=== PATIENT | female | born 1945 | race Caucasian/White ===

== ENCOUNTER 2016-12-16 19:47 | Emergency (ER) | payer MEDICARE, OTHER ==
[2016-12-16 19:57] VITALS: TEMP 98.3; O2SAT 98
[2016-12-16 19:59] VITALS: BMI 25.2
--- NOTE | 2016-12-16 21:04 | ED PDOC ---
Arrival/HPI - General Chief Complaint: Trauma Time Seen by Provider: 12/16/16 19:57 Historian: Patient - History of Present Illness Narrative History of Present Illness (Text): 12/16/16 20:15 Nica Christianson is a 71 year old female, whose past medical history includes hypertension, who presents to the ED s/p fall. Patient states she tripped and fell at home, injuring her left elbow. Patient now complaining of left elbow pain. Patient denies any loss of consciousness, headache, dizziness, neck pain, back pain, weakness/tingling/numbness in the extremity, or any other complaints. Time/Duration: Other (tonight) Symptom Onset: Gradual Symptom Course: Unchanged Activities at Onset: Light Context: Walking, Home, Tripped Past Medical History - Provider Review Nursing Documentation Reviewed: Yes - Cardiac Hx Cardiac Disorders: Yes Hx Hypertension: Yes - Pulmonary Hx Respiratory Disorders: No - Neurological Hx Neurological Disorder: No - HEENT Hx HEENT Disorder: No - Renal Hx Renal Disorder: No - Endocrine/Metabolic Hx Endocrine Disorders: Yes Hx Diabetes Mellitus Type 2: Yes - Hematological/Oncological Hx Blood Disorders: No - Integumentary Hx Dermatological Disorder: No - Musculoskeletal/Rheumatological Hx Musculoskeletal Disorders: Yes Hx Arthritis: Yes Hx Unsteady Gait: Yes - Gastrointestinal Hx Gastrointestinal Disorders: No - Genitourinary/Gynecological Hx Genitourinary Disorders: No - Psychiatric Hx Psychophysiologic Disorder: No Hx Substance Use: No - Surgical History Hx Orthopedic Surgery: Yes (hip) Family/Social History - Physician Review Nursing Documentation Reviewed: Yes Family/Social History: No Known Family HX Smoking Status: Never Smoked Hx Alcohol Use: No Hx Substance Use: No Allergies/Home Meds Allergies/Adverse Reactions: Allergies No Known Allergies Allergy (Verified 12/16/16 19:59) Home Medications: Home Meds Medication Instructions Recorded Confirmed Amlodipine Bes/Olmesartan Med 1 tab PO DAILY 12/16/16 12/16/16 [Christopher 5-20 mg Tablet] Clopidogrel [Plavix] 75 mg PO DAILY 12/16/16 12/16/16 Insulin Glargine, Recombina 0 units SC DAILY 12/16/16 12/16/16 [Lantus] Repaglinide [Prandin] 2 mg PO TID 12/16/16 12/16/16 Rosuvastatin Calcium [Crestor] 5 mg PO DAILY 12/16/16 12/16/16 Review of Systems - Physician Review All systems were reviewed & negative as marked: Yes - Review of Systems Constitutional: Normal. absent: Fevers Eyes: Normal ENT: Normal Respiratory: Normal. absent: SOB, Cough Cardiovascular: Normal. absent: Chest Pain Gastrointestinal: Normal. absent: Abdominal Pain, Diarrhea, Nausea, Vomiting Genitourinary Female: Normal. absent: Dysuria, Frequency, Hematuria Musculoskeletal: Arthralgias (+left elbow pain). absent: Back Pain, Neck Pain Skin: Normal. absent: Rash Neurological: Normal Endocrine: Normal Hemo/Lymphatic: Normal Psychiatric: Normal Physical Exam Vital Signs Reviewed: Yes Vital Signs Temp Pulse Resp BP Pulse Ox 12/16/16 20:47 79 18 128/65 98 12/16/16 19:56 98.3 F 82 18 130/68 98 Temperature: Afebrile Blood Pressure: Normal Pulse: Regular Respiratory Rate: Normal Appearance: Positive for: Well-Appearing, Non-Toxic, Comfortable Pain Distress: None Mental Status: Positive for: Alert and Oriented X 3 Finger Stick Blood Glucose: 232 - Systems Exam Head: Present: Atraumatic, Normocephalic Pupils: Present: PERRL Extroacular Muscles: Present: EOMI Conjunctiva: Present: Normal Mouth: Present: Moist Mucous Membranes Neck: Present: Normal Range of Motion Respiratory/Chest: Present: Clear to Auscultation, Good Air Exchange. No: Respiratory Distress, Accessory Muscle Use Cardiovascular: Present: Regular Rate and Rhythm, Normal S1, S2. No: Murmurs Abdomen: Present: Normal Bowel Sounds. No: Tenderness, Distention, Peritoneal Signs Upper Extremity: Present: Normal Inspection, Normal ROM, NORMAL PULSES, Neurovascularly Intact, Capillary Refill < 2s. No: Cyanosis, Edema, Tenderness , Swelling, Erythema, Temperature Abnormalties, Deformity Lower Extremity: Present: Normal Inspection. No: Edema Neurological: Present: GCS=15, CN II-XII Intact, Speech Normal Skin: Present: Warm, Dry, Normal Color. No: Rashes Psychiatric: Present: Alert, Oriented x 3, Normal Insight, Normal Concentration Medical Decision Making ED Course and Treatment: 12/16/16 20:15 Impression: 71 y/o female c/o left elbow pain s/p fall. Differential Diagnosis included but are not limited to: fracture vs. sprain Plan: -- XR Left Elbow -- XR Left Forearm - Reassess and disposition Progress Notes: Pt refused pain medication on arrival to ED. 12/16/16 21:40 Reviewed radiology, XR Left Elbow shows posterior/anterior fat pad. 12/16/16 21:53 On reevaluation the patient feels better and is in no acute distress. I have discussed the results and plan with the patient, who expresses understanding. Patient given the opportunity to ask question, all questions were answered and there is agreement with the plan to discharge the patient home. Patient is stable for discharge. Patient was instructed to follow up with physician/ orthopedist/clinic in 1-2 days or return if symptoms persist/worsen or new concerning symptoms arise. Re-evaluation Time: 21:53 Reassessment Condition: Re-examined, Improved - Lab Interpretations Lab Results: Lab Results 12/16/16 20:09: POC Glucose (mg/dL) 232 H - RAD Interpretation Radiology Orders: 12/16/16 20:16 ELBOW LEFT 3 VIEWS ROUTINE [RAD] Stat 12/16/16 20:17 FOREARM LEFT [RAD] Stat Humidifier Maintenance Worker: ED Physician - Scribe Statement The provider has reviewed the documentation as recorded by the Elias Huang Provider Attestation: All medical record entries made by the Abhijeetibirish were at my direction and personally dictated by me. I have reviewed the chart and agree that the record accurately reflects my personal performance of the history, physical exam, medical decision making, and the department course for this patient. I have also personally directed, reviewed, and agree with the discharge instructions and disposition. Disposition/Present on Arrival - Present on Arrival Any Indicators Present on Arrival: No History of DVT/PE: No History of Uncontrolled Diabetes: No Urinary Catheter: No History of Decub. Ulcer: No History Surgical Site Infection Following: None - Disposition Have Diagnosis and Disposition been Completed?: Yes Diagnosis: Elbow fracture, left Disposition: HOME/ ROUTINE Disposition Time: 21:53 Patient Problems: Current Active Problems Problem Status Onset Elbow fracture, left Acute Condition: GOOD Discharge Instructions (ExitCare): Elbow Fracture in Adults (ED) Referrals: Sofie Le MD [Primary Care Provider] - Follow up with primary Nash Chand MD [Staff Provider] - Follow up with primary
[2016-12-16 22:51] VITALS: BP 129/68; PULSE 75; RESP 16
--- NOTE | 2016-12-17 10:54 | RAD ---
PROCEDURE: Radiographs of the Left Forearm HISTORY: fall COMPARISON: None available. TECHNIQUE: Frontal and lateral views obtained. FINDINGS: BONES: No fracture or destructive lesion. JOINT SPACES: There is a joint effusion in the elbow with elevation of fat pads OTHER FINDINGS: None. IMPRESSION: Elbow joint effusion. No evidence of fracture
--- NOTE | 2016-12-17 10:58 | RAD ---
PROCEDURE: Radiographs of the left elbow. HISTORY: fall COMPARISON: No prior. FINDINGS: BONES: Normal. No fracture. JOINTS: Normal. No osteoarthritis. SOFT TISSUES: Normal. JOINT EFFUSION: There is a joint effusion with elevation of the fat pads. There is no obvious fracture OTHER FINDINGS: None IMPRESSION: There is a joint effusion with elevation of the fat pads. There is no obvious fracture
== END 2016-12-16 22:50 | disposition home or self-care (01) ==
LOC: ED 19:47
DX: S42.402A Unspecified fracture of lower end of left humerus, initial encounter for closed fracture (principal); W01.0XXA Fall on same level from slipping, tripping and stumbling without subsequent striking against object, initial encounter; Y93.89 Activity, other specified; Y92.009 Unspecified place in unspecified non-institutional (private) residence as the place of occurrence of the external cause; I10 Essential (primary) hypertension; E11.9 Type 2 diabetes mellitus without complications

== ENCOUNTER 2018-07-16 19:02 | Emergency (ER) | payer MEDICARE, OTHER ==
[2018-07-16 19:03] VITALS: BMI 25.2
--- NOTE | 2018-07-16 19:10 | ED PDOC ---
Arrival/HPI - General Historian: Spouse, Family (daughter) - History of Present Illness Narrative History of Present Illness (Text): 07/16/18 19:14 73F with a pmhx of HTN, DM presents to the ED with a one hour hx of non reproducible chest pain. Pt was sick w/ cold for 2 days, stopped taking her antihypertensives for two days. After dinner she went to the bathroom to urinate, she strained and began to get burning and stabbing pain to the right of her sternum. States her home BP cuff read SBP >190. She immediately took two sublingual ASA with her Benicar but spit it out soon after. Pt recently had Stress Test(Apr, 2018- normal) and Echo (January 2018- EF,45%) with [facility] Dr Raymond Welch ROS: Pos+ chest pain, recent sick, stopped taking antiHTNs, fatigue Neg- radiating pains, SOB, Fevers, Chills, nausea, vomiting, loss of conscious, abdominal pain PMD: Dr Le, Cardio: Dr Welch Home Rx: Prandin BID Benicar 40 QD Coreg 6.25 BID Crestor 5mg HS ASA 81 QD Novolog and Lantus 07/16/18 20:07 Time/Duration: 1 hour Symptom Onset: Sudden Symptom Course: Unchanged Quality: Stabbing, Burning Severity Level: Severe Activities at Onset: Other (after eating, while urinating) <Rich Pascal - Last Filed: 07/17/18 03:25> <Florencio Arriola - Last Filed: 07/20/18 23:04> - General Chief Complaint: Chest Pain Time Seen by Provider: 07/16/18 19:09 Past Medical History - Provider Review Nursing Documentation Reviewed: Yes - Infectious Disease Hx of Infectious Diseases: None - Reproductive Menopause: Yes - Cardiac Hx Cardiac Disorders: Yes Hx Hypertension: Yes - Pulmonary Hx Respiratory Disorders: No - Neurological Hx Neurological Disorder: No - HEENT Hx HEENT Disorder: No - Renal Hx Renal Disorder: No - Endocrine/Metabolic Hx Endocrine Disorders: Yes Hx Diabetes Mellitus Type 2: Yes - Hematological/Oncological Hx Blood Disorders: No - Integumentary Hx Dermatological Disorder: No - Musculoskeletal/Rheumatological Hx Musculoskeletal Disorders: Yes Hx Arthritis: Yes Hx Unsteady Gait: Yes - Gastrointestinal Hx Gastrointestinal Disorders: No - Genitourinary/Gynecological Hx Genitourinary Disorders: No - Psychiatric Hx Psychophysiologic Disorder: No Hx Substance Use: No - Surgical History Hx Orthopedic Surgery: Yes (hip) - Anesthesia Hx Anesthesia Reactions: No <Rich Pascal - Last Filed: 07/17/18 03:25> Family/Social History - Physician Review Nursing Documentation Reviewed: Yes Family/Social History: Unknown Family HX Smoking Status: Never Smoked Hx Alcohol Use: No Hx Substance Use: No <Rich Pascal - Last Filed: 07/17/18 03:25> Allergies/Home Meds <Rich Pascal - Last Filed: 07/17/18 03:25> <Florencio Arriola - Last Filed: 07/20/18 23:04> Allergies/Adverse Reactions: Allergies No Known Allergies Allergy (Verified 12/16/16 19:59) Home Medications: Home Meds Medication Instructions Recorded Confirmed Amlodipine Bes/Olmesartan Med 1 tab PO DAILY 12/16/16 12/16/16 [Christopher 5-20 mg Tablet] Clopidogrel [Plavix] 75 mg PO DAILY 12/16/16 12/16/16 Insulin Glargine, Recombina 0 units SC DAILY 12/16/16 12/16/16 [Lantus] Repaglinide [Prandin] 2 mg PO TID 12/16/16 12/16/16 Rosuvastatin Calcium [Crestor] 5 mg PO DAILY 12/16/16 12/16/16 Review of Systems - Physician Review All systems were reviewed & negative as marked: Yes - Review of Systems Constitutional: Fatigue. absent: Fevers Eyes: absent: Vision Changes ENT: absent: TMJ Pain Respiratory: absent: SOB, Cough Cardiovascular: Chest Pain. absent: Palpitations, Edema, Syncope Gastrointestinal: absent: Abdominal Pain, Constipation, Nausea Musculoskeletal: absent: Back Pain, Neck Pain Neurological: absent: Focal Weakness, Speech Changes, Facial Droop Endocrine: absent: Diaphoresis <Rich Pascal - Last Filed: 07/17/18 03:25> Physical Exam Temperature: Afebrile Blood Pressure: Normal Pulse: Regular Respiratory Rate: Normal Appearance: Positive for: Uncomfortable Pain Distress: Severe Mental Status: Positive for: Alert and Oriented X 3 - Systems Exam Head: Present: Atraumatic, Normocephalic Pupils: Present: PERRL Extroacular Muscles: Present: EOMI. No: Gaze Palsy Mouth: Present: Moist Mucous Membranes. No: Drooling Neck: Present: Normal Range of Motion. No: JVD Respiratory/Chest: Present: Clear to Auscultation. No: Wheezes, Rales Cardiovascular: Present: Regular Rate and Rhythm, Normal S1, S2. No: Murmurs Abdomen: No: Tenderness, Distention, Guarding Upper Extremity: Present: NORMAL PULSES. No: Cyanosis, Edema Lower Extremity: Present: Normal Inspection, NORMAL PULSES. No: Edema Neurological: Present: GCS=15, CN II-XII Intact, Speech Normal Skin: Present: Warm, Dry, Normal Color Psychiatric: Present: Alert, Oriented x 3 <Rich Pascal - Last Filed: 07/17/18 03:25> Vital Signs Temp Pulse Resp BP Pulse Ox 07/16/18 19:17 98.2 F 72 18 135/71 97 <Florencio Arriola - Last Filed: 07/20/18 23:04> Medical Decision Making ED Course and Treatment: 07/16/18 19:48 HEART score 4 EKG 0, Age 2, Risk 2, Pending Trops f/u TROPS CBC, CMP, Mag EKG CXR TSH BNP STAT ASA 325mg dose given @ 2044 - EKG Interpretation Interpreted by ED Physician: Yes (NSR, 70BPM, no STEMI) Type: 12 lead EKG <Rich Pascal - Last Filed: 07/17/18 03:25> ED Course and Treatment: 07/16/18 20:02 Patient is a 73 year old female presenting to the emergency department with chest pain. In agreement with resident note, which includes further HPI details. Patient was seen and evaluated with resident, came up with plan and treatment together. - Lab Interpretations Lab Results: 07/16/18 19:30 Lab Results 07/16/18 19:30: Sodium 137, Potassium 4.1, Chloride 102, Carbon Dioxide 28, Anion Gap 11, BUN 16, Creatinine 0.6 L, Est GFR ( Amer) > 60, Est GFR (Non-Af Amer) > 60, Random Glucose 166 H, Calcium 9.3, Phosphorus 3.6, Magnesium 1.8, Total Bilirubin 0.9, AST 82 H, ALT 40, Alkaline Phosphatase 63, Troponin I < 0.01, NT-Pro-B Natriuret Pep 45.9, Total Protein 8.0, Albumin 4.2, Globulin 3.8, Albumin/Globulin Ratio 1.1 - RAD Interpretation Radiology Orders: 07/16/18 19:31 CXR [CHEST PORTABLE] [RAD] Stat <Florencio Arriola - Last Filed: 07/20/18 23:04> - PA / [employer]PER[employer] / Resident Statement / has reviewed & agrees with the documentation as recorded. (73 yr old F w/ hx of HTN, DM2 p/w chest pain. Heart Score 4. x2 troponin negative with negative echo, however after talking w/ PMD, PMD and I both recc observation: however pt stated through ala (scribe puttier) and family that she did not want to stay. I informed her regarding the risks of AMA incudling / disability and she stated she understood the risks and still is seeking to sign out AMA. Pt signed out AMA) / has examined the patient and agrees with the treatment plan. - Scribe Statement The provider has reviewed the documentation as recorded by the Scribe Sada Underwood All medical record entries made by the Abhijeetibirish were at my direction and personally dictated by me. I have reviewed the chart and agree that the record accurately reflects my personal performance of the history, physical exam, medical decision making, and the department course for this patient. I have also personally directed, reviewed, and agree with the discharge instructions and disposition. <Florencio Arriola - Last Filed: 07/20/18 23:04> Disposition/Present on Arrival - Present on Arrival Any Indicators Present on Arrival: No History of DVT/PE: No History of Uncontrolled Diabetes: No Urinary Catheter: No History of Decub. Ulcer: No History Surgical Site Infection Following: None - Disposition Have Diagnosis and Disposition been Completed?: No <Rich Pascal - Last Filed: 07/17/18 03:25> - Disposition Disposition Time: 21:32 <Florencio Arriola - Last Filed: 07/20/18 23:04> - Disposition Diagnosis: Chest discomfort Disposition: AGAINST MEDICAL ADVICE Condition: GOOD Additional Instructions: Pt is leaving against medical advice, risks associated with leaving have been discussed with the patient. Please seek medical attention if symptoms return Referrals: Sofie Le MD [Primary Care Provider] - Follow up with primary Forms: [employer] ([place])
[2018-07-16 19:18] VITALS: RESP 18; TEMP 98.2
[2018-07-16 20:11] LABS: ALB/GLOB RATIO 1.1 (1.1-1.8); ALBUMIN 4.2 g/dL (3.0-4.8); ALT/SGPT 40 U/L (7-56); AST/SGOT 82 U/L (14-36); BLOOD UREA NITROGEN 16 mg/dL (7-21); CALCIUM 9.3 mg/dL (8.4-10.5); GFR NON-AFRICAN AMERICAN > 60
[2018-07-16 20:21] LABS: B-TYPE NATRIURETIC PEPTIDE 45.9 pg/mL (0-450); TROPONIN I < 0.01 ng/mL
[2018-07-16 20:26] LABS: BASO # 0.02 K/mm3 (0.0-2.0); BASO % 0.2 % (0.0-3.0); EOS # 0.1 (0.0-0.7); EOS % 1.2 % (1.5-5.0); GRAN # 4.89 (1.4-6.5); GRAN % 60.1 % (50.0-68.0); HEMOGLOBIN 12.9 g/dL (12.0-16.0); LYMPH # 2.3 (1.2-3.4); LYMPH % 28.5 % (22.0-35.0); MEAN CELL VOLUME 89.8 fl (80.0-105.0); MEAN CORPUSCULAR HEMOGLOBIN 29.3 pg (25.0-35.0); MEAN CORPUSCULAR HGB CONC 32.7 g/dl (31.0-37.0); MEAN PLATELET VOLUME 11.2 fl (7.0-11.0); MONO # 0.8 (0.1-0.6); RBC 4.4 10^6/uL (3.5-6.1); RED CELL DISTRIBUTION WIDTH 13.6 % (11.5-14.5); WHITE BLOOD COUNT 8.1 10^3/uL (4.5-11.0)
[2018-07-17 03:17] VITALS: BP 133/82; PULSE 86; O2SAT 95
--- NOTE | 2018-07-17 09:27 | CARD ---
APPROVED REPORT Date of service: 07/16/2018 EKG Measurement Heart [id number] <Conclusion> Normal sinus rhythm LVH STTW changes c/w ischemia
--- NOTE | 2018-07-17 09:33 | CARD ---
APPROVED REPORT Date of service: 07/17/2018 EKG Measurement Heart [id number] <Conclusion> Normal sinus rhythm LVH NSSTW changes
--- NOTE | 2018-07-17 11:33 | RAD ---
Date of service: 07/16/2018 HISTORY: chest pain COMPARISON: No prior. FINDINGS: LUNGS: No active pulmonary disease. PLEURA: No significant pleural effusion identified, no pneumothorax apparent. CARDIOVASCULAR: No atherosclerotic calcification present Normal. OSSEOUS STRUCTURES: No significant abnormalities. VISUALIZED UPPER ABDOMEN: Normal. OTHER FINDINGS: None. IMPRESSION: No active disease.
== END 2018-07-17 03:16 | disposition left against medical advice (07) ==
LOC: ED 19:02
DX: R07.9 Chest pain, unspecified (principal); I10 Essential (primary) hypertension; E11.9 Type 2 diabetes mellitus without complications